=== PATIENT | female | born 1995 | race Caucasian/White ===

== ENCOUNTER → 2021-06-28 | Outpatient (CLI) | payer OTHER ==
[~2021-06-28] MED LIST: IBUPROFEN 800800 M1 PO; NOHOMEMEDICATIONS PO; NORCO5 PO
== END | disposition home or self-care (01) ==
LOC: M.LAB 13:49
PROVIDERS: ATTEND Obstetrics & Gynecology
DX: Z01.812 Encounter for preprocedural laboratory examination (principal); Z20.822 Contact with and (suspected) exposure to COVID-19; N92.0 Excessive and frequent menstruation with regular cycle

== ENCOUNTER → 2021-06-29 | Day surgery (SDC) | payer OTHER ==
--- NOTE | ~2021-06-29 | OP ---
[address] [address] OPERATIVE REPORT Name: CHRISTELLE DOYLE LOLIS Room: [facility]#: [id number] Admission: 06/29/21 Attend Phys: Noble Wan MD Discharge: Date of : 89 Report #: [id number] THIS REPORT FOR: cc: Jacinta Higuera Beth RNP Caffrey, Robert T. MD ~ DATE OF SURGERY: 06/29/2021 PREOPERATIVE DIAGNOSIS: Refractory menorrhagia. POSTOPERATIVE DIAGNOSIS: Refractory menorrhagia. PROCEDURE: Da Sid-assisted total laparoscopic hysterectomy. SURGEON: Noble Wan MD CARTRIDGE FEEDER: Jeferson Clifford MD TYPE OF ANESTHESIA: General. ESTIMATED BLOOD LOSS: 50 mL. SPECIMEN REMOVED: Cervix and uterus. COMPLICATIONS: None. SURGICAL COUNTS: Correct. DISPOSITION: Taken to recovery room in stable condition. Anticipate discharge later today. DESCRIPTION OF PROCEDURE: After appropriate informed consent was obtained, the patient was taken to the operating room and underwent induction of anesthesia via general endotracheal route. The patient was positioned in the dorsal lithotomy position, prepped and draped as appropriate. A time-out procedure was taken. Following this, a weighted speculum was placed in the vagina. Single-tooth tenaculum was placed on the ____ surface. Uterus sounded to 7 cm in anteverted fashion. A uterine manipulator Device was placed after placement of Meza catheter. I then changed my gloves and joined Dr. Jeferson Clifford where the following steps were ongoing. Dr. Clifford had made an incision approximately 2 cm above the umbilicus. Through this, a Veress needle was inserted and pneumoperitoneum was established utilizing carbon dioxide gas. Opening pressure was 6 mmHg. Once a pneumoperitoneum had been established, the Veress was withdrawn and an 8 mm trocar and sleeve were inserted through the same site. With the trocar removed, laparoscope introduced. We were able to well visualize the abdominopelvic cavity[place] [address] OPERATIVE REPORT Name: CHRISTELLE DOYLE Room: [facility] M..#: [id number] Admission: 06/29/21 Attend Phys: Noble Wan MD Discharge: Date of : 89 Report #: [id number] laparoscopic ports were then established, two 10 cm lateral to the umbilicus and an administrative services assistant port was placed in the patient's left upper quadrant. With this done, the patient was placed in steep Trendelenburg position. In robot arm #1, we placed a fenestrated bipolar. In robot arm #3, I placed the monopolar spatula. I took myself to the surgeon's console there and joined excellent visualization of the uterus and ovaries. The fallopian tubes were absent from previous surgery. We began our steps by grabbing the patient's left utero-ovarian ligament. It was electrodesiccated with a fenestrated bipolar and cut with monopolar spatula to the center of the round ligament and then opened the anterior and posterior leaf of the broad ligament stopping at the uterocervical junction. The exact same steps were performed on the patient's right side. We then created a defect in the peritoneum and the anterior cul-de-sac and pushed the peritoneum off the anterior cervix. We then exposed the posterior aspect of the uterus and cervix. We palpated for a colpotomy ring, we then opened in the vaginal space on top of the colpotomy ring, started following it carefully circumferentially about the cervix, rotating and removing the cervix such to carefully ultimately able to separate it and my administrative services assistant then pulled the cervix and uterus into the vaginal space. We then changed out the monopolar spatula with a needle grasper and the vaginal cuff was closed with 2-0 V-Loc suture starting from the right apex working to the opposite side or left side. There was a bit of bleeding from the vaginal cuff near the patient's right side. This was ultimately stopped by placement of a 3-0 Vicryl suture placed in a aytjlj-ka-cehll fashion. Once ensuring that hemostasis was achieved, I still elected to use Evista powder as a hemostatic agent just for increased certainty. This was done with ease. The procedure was then concluded. The instruments were removed. The CO2 gas had been released from the abdomen. Laparoscopic ports were closed with 3-0 Vicryl followed by Dermabond glue. OR staff have indicated sponge, instrument and needle counts were correct. The patient tolerated the procedures well. By: [id number] Wan MD /gail
[2021-06-29 06:46] LABS: HEMOGLOBIN 11.8 gm/dL (12.0-15.0); MCH 23.2 pg (26.0-34.0); MCHC 31.1 g/dL (28.0-37.0); MCV 74.7 fL (80.0-100.0); MPV 9.4 fl. (7.2-11.1); RBC 5.08 mil/uL (4.20-5.00); RDW-CV 18.3 % (10.5-14.5); WBC 6.8 thou/uL (4.0-11.0)
--- NOTE | 2021-07-04 13:08 | PATH ---
[address] [address] PATHOLOGY RPT PROCEDURE Name: CHRISTELLE DOYLE Room: [facility] Andrea#: [id number] Admission: 06/29/21 Date of : 89 Discharge: Report #: [id number] Path Case #: [id number] [facility] Accession Number: [id number] . 01 Material submitted: . uterus - UTERUS, CERVIX . 01 Clinical history: . ROBOTIC TOTAL HYSTERECTOMY MENORRHAGIA . 02 Diagnosis: Uterus, cervix: 89 gram uterus (including cervix and without bilateral adnexa) with: - Cervix: Severe chronic inflammation, negative for high-grade squamous intraepithelial lesion. - Endometrium: Proliferative pattern, negative for hyperplasia and atypia. - Myometrium: No significant pathologic changes. (ANI:ashwini; 07/02/2021) MBR 07/02/2021 1834 Local . 02 Electronically signed: . Jerardo Patel MD, Pathologist NPI- [id number] . 01 Gross description: . Fixative: Formalin Labeled: Uterus, cervix Specimen received: Intact hysterectomy without adnexa Uterus weight: 89 g Uterus: 9.5 cm from fundus to cervix, 5.8 cm from cornu to cornu, 4.3 cm from anterior to posterior Serosa: [place] and smooth Ectocervix: The periphery is red-purple and glistening. The central ectocervix, surrounding the cervical os, displays a 2.8 x 2.5 x 0.3 cm boudreaux-brown roughened granular area. Cervical os: Slitlike, measuring 0.8 cm Endocervical canal: 3.2 x 1.0 cm Endometrial cavity: 4.5 x 2.6 cm Endometrial thickness: 0.3 cm Myometrial thickness: 1.7 cm Lesions/abnormalities: Previously described cervix. No other abnormalities identified. . Criminal Research Specialist sections are submitted as follows: A1 12:00 cervix A2 3:00 [place] [address] PATHOLOGY RPT PROCEDURE Name: CHRISTELLE DOYLE LOLIS Room: [facility]#: [id number] Admission: 06/29/21 Date of : 89 Discharge: Report #: [id number] Path Case #: [id number] A3 6:00 cervix A4 9:00 cervix A5 anterior endomyometrium A6 posterior endomyometrium ([facility]; 06/30/2021) [facility] 06/30/2021 1001 Local . 02 Pathologist provided ICD-10: N72, N92.0 . 02 CPT . 308027 Specimen Comment: A courtesy copy of this report has been sent to [phone], [phone] Specimen Comment: [id number] Specimen Comment: Report sent to , DR FLORES / DR RUTHERFORD Specimen Comment: A duplicate report has been generated due to demographic updates. Performed at: 01 [facility] [address], [place] [id number] MD Taye Moreno MD Phone: [phone] Performed at: 02 [facility] [address], [place], [place] [id number] MD Jerardo Patel MD Phone: [phone]
== END | disposition home or self-care (01) ==
LOC: M.SUR 06:07
PROVIDERS: ATTEND Obstetrics & Gynecology
DX: N92.0 Excessive and frequent menstruation with regular cycle (principal); N72 Inflammatory disease of cervix uteri; F41.9 Anxiety disorder, unspecified; G43.909 Migraine, unspecified, not intractable, without status migrainosus; Z98.890 Other specified postprocedural states; Z79.899 Other long term (current) drug therapy; Z90.49 Acquired absence of other specified parts of digestive tract; Z98.51 Tubal ligation status

== ENCOUNTER 2021-12-19 13:15 | Emergency (ER) | payer OTHER ==
[~2021-12-19] VITALS: Ht 160 cm; Wt 99.8 kg
[2021-12-19] MEDS ORDERED: FLEXERIL PO (16:09)
[2021-12-19 16:15] VITALS: BP 130/82
== END 2021-12-19 16:16 | disposition home or self-care (01) ==
LOC: M.ERS 13:15
DX: S70.02XA Contusion of left hip, initial encounter (principal); S70.12XA Contusion of left thigh, initial encounter; Z90.49 Acquired absence of other specified parts of digestive tract; Z98.51 Tubal ligation status; Z98.890 Other specified postprocedural states; Z90.710 Acquired absence of both cervix and uterus; V86.59XA Driver of other special all-terrain or other off-road motor vehicle injured in nontraffic accident, initial encounter; Y93.I9 Activity, other involving external motion; Y92.69 Other specified industrial and construction area as the place of occurrence of the external cause; Y99.0 Civilian activity done for income or pay